=== PATIENT | male | born 1995 | race African-American/Black ===

== ENCOUNTER 2017-12-15 10:31 | Emergency (ER) | payer OTHER, MEDICAID ==
[2017-12-15] MEDS: guaiFENesin SYRUP 200 MG/10 ML UDC PO (11:30)
[2017-12-15] MEDS: ONDANSETRON 4 MG ORAL DISINTEGRATING TAB (S0181) PO (11:30)
[2017-12-15 12:13] LABS: INFLUENZA A AMPLIFICATION NEGATIVE (NEGATIVE); INFLUENZA B AMPLIFICATION POSITIVE (NEGATIVE)
== END 2017-12-15 12:37 | disposition home or self-care (01) ==
LOC: M ED 10:31
DX: J10.1 Influenza due to other identified influenza virus with other respiratory manifestations (principal); Z88.8 Allergy status to other drugs, medicaments and biological substances
CPT/HCPCS: 87502